=== PATIENT | female | born 1935 | race Caucasian/White ===

== ENCOUNTER 2016-10-16 09:04 | Emergency (ER) | payer MEDICARE ==
[~2016-10-16] VITALS: Ht 172.7 cm; Wt 72.7 kg
[~2016-10-16 09:04] MED LIST: AMLO10TA3 PO; ASCO500T8 PO; ASPI-628 PO; CALC-198 PO; CHOL200047 PO; FAMO20T PO; GLUT25PO PO; LISI40TA PO; LOVA20TA PO; MULT-876 PO; OMEG1CAP56 PO; TAMO20TA4 PO; UBID1CAP52 PO; VITAMIN B6 PO; [UNRECOGNIZED DRUG - CODE] PO; [UNRECOGNIZED DRUG - OTHER] PO
[2016-10-16 09:15] VITALS: BP 144/76; PULSE 76; RESP 18; O2SAT 100
[2016-10-16 11:02] LABS: BASOPHILS % (AUTO) 0.2 % (0-3); EOSINOPHILS % (AUTO) 0.5 % (0-5); MONOCYTES % (AUTO) 7.7 % (4-12); Mean Corpuscular Hemoglobin 31.8 pg (27.0-35.0); Mean Corpuscular Volume 96.1 fL (81-100); Platelet Count 190 bil/L (150-400)
--- NOTE | 2016-10-16 11:12 | ED.REPORT ---
HPI-General Illness Date of Service Oct 16, 2016 ED Provider: Lashawn Hammer MD A 80 year old female with a history of breast cancer, HTN and pre-diabetes, presents to the ED complaining of sharp pain present underneath both shoulder blades with pain concentrated more in right shoulder blade. The pain is rated at 9/10, is exacerbated by standing, by movement of the shoulders and upper extremities, and by taking deep breathes. The pain onset yesterday morning while patient was chopping vegetables, the pain subsequently resolving itself. This morning the pain came back abruptly while she was making coffee. She denies any recent sickness, fever, cold, cough or chills. She reports that she has been sleeping well. The patient recovered from breast cancer 3.5 years ago. She reports having had a subjective TIA in the past that was never clarified. She denies any history of heart problems. She takes aspirin for preventive measures and is also on chlorthalidone. Suzie Pop is her Nurse Practitioner. Nursing Notes Stated Complaint: SHOULDER PAIN Chief Complaint: General Complaint Nursing Notes Reviewed: Yes Allergies: Coded Allergies: chlorthalidone (Verified Allergy, Severe, HYPONATREMIA, 03/10/13) Scheduled ([corisidin]) PO PRN ([Vitamin B6]) 50 MG PO DAILY Acetaminophen (Pain Reliever) 500 Mg Tablet 1,000 MG PO Q6HP Amlodipine (Amlodipine) 10 Mg Tablet 10 MG PO DAILY Aspirin (Aspirin) 81 Mg Tablet 81 MG PO DAILY Calcium Carb/Vit D3/Mag11/Zinc (Jiabbur-Ort-Hcyn-Vit D Tablet) 1 Each Tablet 1 EACH PO DAILY Cholecalciferol (Vitamin D3) (Vitamin D3) 2,000 Unit Capsule 2,000 UNIT PO DAILY Famotidine (Pepcid) 20 Mg Tablet 20 MG PO PRN Glutamine (l-Glutamine) 25 Gm Powder 2 TSP PO TID Lisinopril (Lisinopril) 40 Mg Tablet 40 MG PO HS Lovastatin (Lovastatin) 20 Mg Tablet 20 MG PO HS Multivit with Calcium,Iron,Min (Tab A Chayo) 1 Each Tablet 1 EACH PO DAILY Cairo-3 Fatty Acids/Fish Oil (Cairo 3 1,000 mg Softgel) 1 Each Capsule 1 EACH PO DAILY Tamoxifen Citrate (Tamoxifen Citrate) 20 Mg Tablet 20 MG PO DAILY Ubidecarenone/Vit E Acetate (Co Q-10 100 mg Softgel) 1 Each Capsule 1 EACH PO DAILY Miscellaneous Medications Ascorbic Acid (Ascorbic Acid) 100 Gm Granules 500 GM [facility] General Time Seen by MD: 11:09 Chief Complaint Chest pain (right side, under scapula, worse with deep breath) Past Medical History Past Medical History breast cancer, recovered 3.5 years ago. Pre-diabetes. Subjective TIA, never clarified. Reports: Hypertension Past Surgical History none reported. Ambulatory Status Independent Review of Systems Pain underneath both shoulder blades. Denies recent sickness. Full Review of Systems Constitutional: Denies: Chills, Fever Respiratory: Denies: Non-productive cough Complete sys rev & neg: except as marked. Physical Exam normal Vital Signs Vital Signs Date Time Temp Pulse Resp B/P Pulse Ox O2 Delivery O2 Flow Rate FiO2 10/16/16 13:13 72 114/48 10/16/16 09:15 36.1 76 18 144/76 100 Room Air Initial VS: Reviewed General/Constitutional: Awake, Alert Head / Eyes: Atraumatic, Normocephalic, PERRL, EOMI ENT: Atraumatic, Mucous membranes moist Neck: Atraumatic, Full range of motion Respiratory / Chest: Atraumatic, Breath sounds NL, Breath sounds = bilat, No respiratory distress, No rales, No rhonchi, No wheezing Cardiovascular: Heart rate NL, Regular rhythm, Heart sounds NL, No gallop, No murmurs, No rubs Abdomen: Atraumatic, No guarding, No rebound Back: Atraumatic, Full range of motion Upper Extremities Upper Extremity / MS: Atraumatic, Full range of motion Wrist / Hand: Atraumatic, Full range of motion Lower Extremity / Pelvis / MS: Atraumatic, Full range of motion Skin: Atraumatic, Color NL, No rash, Warm, Dry Neurologic: Oriented X3, Speech NL Interpretation & Diagnostics Lab Results Interpretation Result Diagram: 10/16/16 1055 10/16/16 1055 Test 10/16/16 10:55 White Blood Count 8.7th/mm3 (3.8-10.1) Red Blood Count 3.80mil/mm3 (3.90-5.20) Hemoglobin 12.1g/dL (12.0-15.6) Hematocrit 36.5% (35.0-46.0) Mean Corpuscular Volume 96.1fL (81-100) Mean Corpuscular Hemoglobin 31.8pg (27.0-35.0) Mean Corpuscular Hemoglobin Concent 33.2% (32.0-37.0) Red Cell Distribution Width 12.7% (12.3-15.4) Platelet Count 190bil/L (150-400) Neutrophils (%) (Auto) 80.0% (40-74) Lymphocytes (%) (Auto) 11.5% (14-46) Monocytes (%) (Auto) 7.7% (4-12) Eosinophils (%) (Auto) 0.5% (0-5) Basophils (%) (Auto) 0.2% (0-3) Sodium Level 136mEq/L (134-144) Potassium Level 4.7mEq/L (3.5-5.2) Chloride Level 101mEq/L (97-108) Carbon Dioxide Level 23mmol/L (18-29) Blood Urea Nitrogen 20mg/dL (8-27) Creatinine 0.84mg/dL (0.57-1.00) Estimat Glomerular Filtration Rate 94mL/min (>59) Glucose Level 113mg/dL (60-99) Calcium Level 8.4mg/dL (8.5-10.1) Magnesium Level 2.2mg/dL (1.6-2.6) Total Bilirubin 0.4mg/dL (0.0-1.2) Aspartate Amino Transf (AST/SGOT) 27U/L (0-50) Alanine Aminotransferase (ALT/SGPT) 18U/L (0-32) Alkaline Phosphatase 38U/L (25-165) Total Protein 6.6g/dL (6.4-8.4) Albumin 4.0g/dL (3.4-5.0) Lipase 91U/L (13-60) Hold Benito Top Tube Received (Received) ECG Interpretation ECG Interpretation: Rate is 65. Sinus rhythm. Big end normal. Time: 09:26 Interpreted by: ED physician X-Ray Chest Interpretation Chest Xray Interpretation: IMPRESSION: No acute cardiopulmonary disease process. Dictated by: Jessica Do MD, PhD on 10/16/2016 at 11:52 Approved by: Jessica Do MD, PhD on 10/16/2016 at 11:53 View: Portable Interpretation / Wet Read by: Interpret - Radiologist Re-Eval/Medical Decision Source of Hx: Old records Time of Eval: 12:47 Re-Evaluation/Progress Note: Rechecked the patient, explained test results, diagnosis, and plan for discharge. The patient understands and agrees with the plan. All questions addressed. Discharge & Departure Primary Impression: Pleurisy Ruled Out: STEMI (ST elevation myocardial infarction), Pneumonia, Pneumothorax Disposition: Home Discharge Condition All VS Reviewed: Yes Condition: Improved Additional Instructions: Your exam, history and the studies done today all suggest you have pleurisy. I am not finding any indication of heart attack, pneumonia, a collapsed lung or any other life threatening issue. You responded nicely to ibuprofen in the ER and can continue this as needed. I expect you will have symptoms, lessening daily, over the next week. I hope you feel better. Thank you for your patience in the ER today. Please return if you have any change to your symptoms. Referrals: Kera Hickman MD (PCP) Scribe Attestation Portions of this note were transcribed by Derrick Bolivar. I, Dr. Hammer, personally performed the history, physical exam, and medical decision-making: I reviewed and confirmed the accuracy for the information in the transcribed note. Signed by: hortencia Khan, 10/16/16 1313. copies to: Suzie Pop Shawna L MD Oct 16, 2016 11:12 Derrick Bolivar Oct 16, 2016 11:22
[2016-10-16] MEDS ORDERED: ASPI-973 PO (11:21)
[2016-10-16] MEDS ORDERED: ASCO120G2 MC (11:21)
[2016-10-16 11:24] LABS: Magnesium 2.2 mg/dL (1.6-2.6)
--- NOTE | 2016-10-16 11:55 | DRSVH ---
PROCEDURE: X-RAY CHEST, TWO VIEWS ([id number]) INDICATIONS: pain between shoulder blades TECHNIQUE: 2 views of the chest were acquired. COMPARISON: None. FINDINGS: Surgical changes and devices: None. Lungs and pleura: No pleural effusions or pneumothorax. Lungs are clear. Lungs are hyperinflated mehta ggesting COPD. Mediastinum: Mediastinal contours are normal. Heart size is normal. Bones and chest wall: No suspicious bony abnormalities. Soft tissues appear unremarkable. IMPRESSION: No acute cardiopulmonary disease process. Dictated by: Jessica Do MD, PhD on 10/16/2016 at 11:52 Approved by: Jessica Do MD, PhD on 10/16/2016 at 11:53
[2016-10-16 13:13] VITALS: BP 114/48; PULSE 72
== END 2016-10-16 13:14 | disposition home or self-care (01) ==
LOC: SED 09:04
DX: R09.1 Pleurisy (principal); M25.511 Pain in right shoulder; M25.512 Pain in left shoulder; I10 Essential (primary) hypertension; Z86.73 Personal history of transient ischemic attack (TIA), and cerebral infarction without residual deficits; Z79.82 Long term (current) use of aspirin; Z88.8 Allergy status to other drugs, medicaments and biological substances